=== PATIENT | male | born 1970 | race Caucasian/White ===

== ENCOUNTER 2018-03-28 20:13 | Emergency (ER) | payer BC ==
[2018-03-28 20:30] VITALS: BP 136/96
[2018-03-28] MEDS ORDERED: Lidocaine 1% MPF* 2 ML VIAL INJ ONE (20:37)
[2018-03-28] MEDS ORDERED: Lidocaine 1% MPF* 2 ML VIAL ONE (20:38)
[2018-03-28] MEDS ORDERED: Sulfamethox/Trimethoprim DS 800/160* TAB PO ONE (21:03)
[2018-03-28] MEDS ORDERED: Ibuprofen TAB* 400 MG PO ONE (21:03)
--- NOTE | 2018-03-28 21:27 | UC ---
Smita Ferguson Elizabeth, scribed for Haresh Santana MD on 03/28/18 at 2059 . Skin Complaint HPI - HPI Summary HPI Summary: This patient is a 48 year old M presenting to [facility] with a chief complaint of a boil below his umbilicus since 5 days ago. The patient notes that the sore became more indurated, painful and began to drain today. The patient rates the pain 2/10 in severity. Symptoms aggravated by nothing. Symptoms alleviated by nothing. The patient was found to have increased BP in UC. - History of Current Complaint Chief Complaint: UCGeneralIllness Time Seen by Provider: 03/28/18 20:21 Stated Complaint: SORE ON STOMACH Hx Obtained From: Patient Onset/Duration: Gradual Onset, Lasting Days - 5 days, Still Present Timing: Constant Onset Severity: Mild Current Severity: Mild Pain Intensity: 2 Pain Scale Used: 0-10 Numeric Location: Discrete, Other - below umbilicus Character: Redness Aggravating Factor(s): Nothing Alleviating Factor(s): Nothing - Allergy/Home Medications Allergies/Adverse Reactions: Allergies Allergy/AdvReac Type Severity Reaction Status Date / Time No Known Allergies Allergy Verified 03/28/18 20:30 Home Medications: Home Medications Atorvastatin* [Lipitor 20 MG*] 20 mg PO DAILY 03/28/18 [History Confirmed ] Review of Systems Constitutional: Negative - NEGATIVE FEVER Skin: Other - abscess below umbilicus ENT: Negative - NEGATIVE EPISTAXIS Respiratory: Negative - NEGATIVE COUG All Other Systems Reviewed And Are Negative: Yes PMH/Surg Hx/FS Hx/Imm Hx Endocrine History: Dyslipidemia Other Respiratory History: NEGATIVE COPD - Surgical History Surgical History: None - Family History Known Family History: Positive: None, Other - patient denies relevant FHx - Social History Alcohol Use: Occasionally Substance Use Type: None Smoking Status (MU): Never Smoked Tobacco Physical Exam - Summary Physical Exam Summary: VITAL SIGNS: Reviewed. GENERAL: Patient is a well-developed and nourished MALE who is lying comfortable in the stretcher. Patient is not in any acute respiratory distress. HEAD AND FACE: Normocephalic EYES: PERRLA, EOMI x 2. EARS: Hearing grossly intact. MOUTH: Oropharynx within normal limits. NECK: Supple, trachea is midline, no adenopathy, no JVD, no carotid bruit. CHEST: Symmetric, no tenderness at palpation LUNGS: Clear to auscultation bilaterally. No wheezing or crackles. CVS: Regular rate and rhythm, S1 and S2 present, no murmurs or gallops appreciated. ABDOMEN: Soft, non-tender. Bowel sounds are normal. No abdominal abnormal pulsations. Abscess under umbilicus with surrounding erythema EXTREMITIES: Full ROM in all major joints, no edema, no cyanosis or clubbing. NEURO: Alert and oriented x 3. No acute neurological deficits. Speech is normal and follows commands. SKIN: Dry and warm Triage Information Reviewed: Yes Vital Signs: Initial Vital Signs Temp 98.2 F 03/28/18 20:24 Pulse 77 03/28/18 20:24 Resp 18 03/28/18 20:24 BP 136/96 03/28/18 20:24 Pulse Ox 100 03/28/18 20:24 Vital Signs Reviewed: Yes Course/Dx - Course Course Of Treatment: Procedure - Incision and Drainage. Patient positioned appropriately, 2 cc lidocaine with/without epinephrine was used as a local anesthetic. #11 blade scalpel used for single incision. Additional local anesthetic injected into surrounding viable tissue prior to blunt dissection of loculated adhesions. Copious drainage of pus was expressed (culture obtained). Wound packed with iodoform gauze. Procedure tolerated without complications. Wound dressed with sterile 4x4 gauze and paper tape. The patient is also having cellulitis the patient was given Bactrim and ibuprofen for the pain. Patient will follow-up with primary care physician or return to the urgent care for reassessment next 2-3 days. The patient was also advised to go to the ER or return to the urgent care if the symptoms worsen. He understands and agrees. - Differential Diagnoses - Skin Complaint Differential Diagnoses: Abscess, Cellulitis - Diagnoses Provider Diagnoses: Abscess and cellulitis is status post I&D, HTN Discharge - Sign-Out/Discharge Documenting (check all that apply): Discharge/Admit/Transfer - Discharge Plan Condition: Stable Disposition: HOME Prescriptions: Ibuprofen TAB* [Motrin TAB* 800 MG] 800 mg PO Q8H PRN #20 tab PRN Reason: Pain Sulfamethox/Trimethoprim DS* [Bactrim DS 800/160 TAB*] 1 tab PO BID #20 tab Patient Education Materials: Cellulitis (ED), Abscess (ED) Referrals: [facility] [place] [facility] [Outside] No Primary Care Phys,NOPCP [Primary Care Provider] - Additional Instructions: Take medications as instructed Increase your fluid intake Return to the UC if symptoms worsen The documentation as recorded by the Smita dennis Elizabeth accurately reflects the service I personally performed and the decisions made by me, Haresh Santana MD.
--- NOTE | 2018-03-29 16:06 | UC ---
- Progress Note Progress Note: Lab called with POSITIVE MRSA result. Pt is on Bactrim. No change. Discharge - Sign-Out/Discharge Documenting (check all that apply): Post-Discharge Follow Up - Discharge Plan Condition: Stable Disposition: HOME Prescriptions: Ibuprofen TAB* [Motrin TAB* 800 MG] 800 mg PO Q8H PRN #20 tab PRN Reason: Pain Sulfamethox/Trimethoprim DS* [Bactrim DS 800/160 TAB*] 1 tab PO BID #20 tab Patient Education Materials: Cellulitis (ED), Abscess (ED) [place] [facility] [place] [place]] No Primary Care Phys,NOPCP [Primary Care Provider] - Additional Instructions: Take medications as instructed Increase your fluid intake Return to the UC if symptoms worsen - Billing Disposition and Condition Condition: STABLE Disposition: HOME
== END 2018-03-28 21:10 | disposition home or self-care (01) ==
LOC: UCEAST 20:13
DX: L02.216 Cutaneous abscess of umbilicus (principal); L03.316 Cellulitis of umbilicus; B95.62 Methicillin resistant Staphylococcus aureus infection as the cause of diseases classified elsewhere; E78.5 Hyperlipidemia, unspecified
CPT/HCPCS: 10060; 87070; 87077; 87186; 87205; 87640; 87641; 99202; A9270-GY; G0463

== ENCOUNTER 2018-03-30 18:36 | Emergency (ER) | payer BC ==
[2018-03-30 18:56] VITALS: BP 122/83
--- NOTE | 2018-03-30 19:17 | ED ---
Skin Complaint - HPI Summary HPI Summary: 48-year-old man returns to urgent care today 2 days post incision and drainage of an abdominal wall abscess. He was placed on Bactrim. The wound is improving in his opinion. He has not had any fever or increasing redness. There is no drainage. Culture return positive for MRSA, no changed antibiotics were made yesterday based on this culture and him being on Bactrim. - History of Current Complaint Chief Complaint: UCWounds Time Seen by Provider: 03/30/18 19:11 Stated Complaint: SORE ON STOMACH RECHECK Hx Obtained From: Patient Pain Intensity: 2 - Allergy/Home Medications Allergies/Adverse Reactions: Allergies Allergy/AdvReac Type Severity Reaction Status Date / Time No Known Allergies Allergy Verified 03/28/18 20:30 PMH/Surg Hx/FS Hx/Imm Hx Previously Healthy: Yes Infectious Disease History: No Infectious Disease History: Denies: Traveled Outside the [place] in Last 30 Days - Family History Known Family History: Positive: None, Other - patient denies relevant FHx - Social History Alcohol Use: Occasionally Substance Use Type: Reports: None Smoking Status (MU): Never Smoked Tobacco Review of Systems Negative: Fever, Chills Positive: Other - no wound drainage. Negative: Rash, Bruising All Other Systems Reviewed And Are Negative: Yes Physical Exam Triage Information Reviewed: Yes Vital Signs On Initial Exam: Initial Vitals Temp Pulse Resp BP Pulse Ox 97.6 F 60 16 122/83 99 03/30/18 18:51 03/30/18 18:51 03/30/18 18:51 03/30/18 18:51 03/30/18 18:51 Vital Signs Reviewed: Yes Appearance: Positive: Well-Appearing, No Pain Distress Skin: Positive: Warm, Dry, Other - Infraumbilical incised area with iodoform packing in place. The iodoform was removed. No drainage. Minimal surrounding erythema. Respiratory/Lung Sounds: Positive: Clear to Auscultation Cardiovascular: Positive: RRR Musculoskeletal: Positive: Strength/ROM Intact Neurological: Positive: Normal Procedures - Procedure Summary Procedure Summary: Wound care: I removed the packing from the abdominal wall abscess incised area. I cleaned the area with a swab and alcohol. I redressed it with 2 x 2 gauze covered by a 4 x 4. This was secured with tape. He tolerated this well without complication. Diagnostics - Vital Signs Vital Signs Temp Pulse Resp BP Pulse Ox 03/30/18 18:51 97.6 F 60 16 122/83 99 - Laboratory Lab Statement: Any lab studies that have been ordered have been reviewed, and results considered in the medical decision making process. Course/Dx - Course Course Of Treatment: Positive MRSA on Bactrim. Wound is well appearing at present. Packing discontinued. - Diagnoses Provider Diagnoses: MRSA (methicillin resistant staph aureus) culture positive, Abdominal wall abscess Discharge - Sign-Out/Discharge Documenting (check all that apply): Discharge/Admit/Transfer - Discharge Plan Condition: Good Disposition: HOME Patient Education Materials: MRSA (Methicillin-Resistant Staphylococcus Aureus ) (ED) Referrals: No Primary Care Phys,NOPCP [Primary Care Provider] - [facility] [place] [facility] [Outside] Additional Instructions: Return as needed or if wound is draining, redness is enlarging, fevers, worse or other concerns. Clean the area with soap and water twice a day as discussed. Continue antibiotics until out. - Billing Disposition and Condition Condition: GOOD Disposition: HOME
== END 2018-03-30 19:33 | disposition home or self-care (01) ==
LOC: UCEAST 18:36
DX: L02.211 Cutaneous abscess of abdominal wall (principal); B95.62 Methicillin resistant Staphylococcus aureus infection as the cause of diseases classified elsewhere
CPT/HCPCS: 99211; G0463

== ENCOUNTER 2019-02-24 14:01 | Emergency (ER) | payer BC, OTHER ==
[2019-02-24 14:29] VITALS: BP 142/88
--- NOTE | 2019-02-24 14:38 | UC ---
Laceration HPI - HPI Summary HPI Summary: 48-year-old male presents with complaints of laceration to his forehead. States that approximately 1:30 this afternoon he accidentally struck his head on the corner of a dumpster at work. States bleeding was controlled with direct pressure prior to arrival. Some of his coworkers attempted to close the wound using superglue. Complains of a mild headache. Denies loss of consciousness, dizziness, lightheadedness, visual disturbances, photophobia, weakness, numbness, or tingling. Tetanus status is unknown. - History Of Current Complaint Chief Complaint: UCHeadInjury Stated Complaint: HEAD LAC Time Seen by Provider: 02/24/19 14:19 Hx Obtained From: Patient Pain Intensity: 3 - Allergies/Home Medications Allergies/Adverse Reactions: Allergies Allergy/AdvReac Type Severity Reaction Status Date / Time No Known Allergies Allergy Verified 02/24/19 14:28 Home Medications: Home Medications Tamsulosin CAP* [Flomax CAP*] 0.4 mg PO BEDTIME 02/24/19 [History Confirmed ] PMH/Surg Hx/FS Hx/Imm Hx Previously Healthy: Yes - Denies significant PMH - Surgical History Surgical History: None - Family History Known Family History: Positive: Non-Contributory - Social History Occupation: Employed Full-time Lives: With Family Alcohol Use: Occasionally Substance Use Type: None Smoking Status (MU): Never Smoked Tobacco Review of Systems All Other Systems Reviewed And Are Negative: Yes Constitutional: Positive: Negative Skin: Positive: Other - See HPI Eyes: Negative: Blurred Vision, Diplopia, Photophobia Respiratory: Positive: Negative Cardiovascular: Positive: Negative Gastrointestinal: Positive: Negative Genitourinary: Positive: Negative Musculoskeletal: Positive: Negative Neurological: Positive: Headache. Negative: Weakness, Paresthesia, Numbness, Other - See HPI Is Patient Immunocompromised?: No Physical Exam - Summary Physical Exam Summary: GENERAL APPEARANCE: Well developed, well nourished, alert and cooperative, and appears to be in no acute distress. HEAD: 2 cm superficial laceration to mid forehead with bleeding controlled. The wound is presently closed with superglue. EYES: Conjunctiva clear. No drainage. PERRL, EOM intact. Vision is grossly intact. NECK: Neck supple, non-tender. CARDIAC: Normal S1 and S2. No S3, S4 or murmurs. Rhythm is regular. There is no peripheral edema, cyanosis or pallor. Extremities are warm and well perfused. Capillary refill is less than 2 seconds. Peripheral pulses intact. LUNGS: Clear to auscultation without rales, rhonchi, wheezing or diminished breath sounds. ABDOMEN: Positive bowel sounds. Soft, nondistended, nontender. No guarding or rebound. No masses or hepatosplenomegally. MUSKULOSKELETAL: ROM intact to all extremities. No joint erythema or tenderness. Normal muscular development. Normal gait. NEUROLOGICAL: CN II-XII intact. Strength and sensation symmetric and intact throughout. Negative Romberg. SKIN: Skin normal color, texture and turgor. Triage Information Reviewed: Yes Vital Signs: Initial Vital Signs Temp 98.3 F 02/24/19 14:21 Pulse 92 02/24/19 14:21 Resp 18 02/24/19 14:21 BP 142/88 02/24/19 14:21 Pulse Ox 97 02/24/19 14:21 Vital Signs Reviewed: Yes Laceration Repair - Laceration Repair 1 Description: Linear Laceration Size After Repair: Length (cm) - 2 cm superficial Cleansing Completed Via Routine Prep: Yes Closure Material: Skin Adhesive, SteriStrips Laceration Course/Dx - Course/Dx Course Of Treatment: 48-year-old male presents with complaints of laceration to his forehead. States that approximately 1:30 this afternoon he accidentally struck his head on the corner of a dumpster at work. States bleeding was controlled with direct pressure prior to arrival. Some of his coworkers attempted to close the wound using superglue. Complains of a mild headache. Denies loss of consciousness, dizziness, lightheadedness, visual disturbances, photophobia, weakness, numbness, or tingling. Tetanus status is unknown. Afebrile. Hypertensive otherwise vital signs stable. Exam was unremarkable except for what appeared to be a superficial laceration to his mid forehead. Since the patient attempted to close the wound himself using superglue I applied some bacitracin ointment to the area to dissolve the glue then thoroughly cleansed the wound using soap and water. After wound cleansing laceration was examined and found to be very superficial with no evidence of foreign body. The wound was then closed using two 1/8 inch Steri-Strips and a skin adhesive. Tetanus was updated. Wound care, anticipatory guidance, and warning symptoms were reviewed with the patient. Verbalizes understanding and agrees with plan of care. - Differential Dx - Laceration/Wound Differental Diagnoses: Laceration, Other - Closed head injury - Diagnosis Provider Diagnosis: Closed head injury, Laceration of forehead without complication, Elevated blood pressure reading Discharge - Sign-Out/Discharge Documenting (check all that apply): Patient Departure All imaging exams completed and their final reports reviewed: No Studies - Discharge Plan Condition: Stable Disposition: HOME Patient Education Materials: Head Injury (ED), Facial Laceration (ED) Referrals: No Primary Care Phys,NOPCP [Primary Care Provider] - Additional Instructions: Your laceration as repaired with a combination of skin adhesive and Steri- Strips. The adhesive will slowly wear off over the next several days. Keep the adhesive dry for the next 24 hours. After 24 hours you may shower and wash your hair as ususal. Do not apply any lotions or ointments to the adhesive as this may dissolve the adhesive and cause the wound to reopen. The Steri-Strips will slowly peel up from the ends over the next few days. You may trim the ends as needed but do not pull off or you may reopen the wound. Take acetaminophen (Tylenol) or ibuprofen (Advil, Motrin) according to directions as needed for pain. Your tetanus was updated today. Be sure to notify your primary care provider so they can update their records. Your blood pressure was also slightly elevated in the clinic today. It is recommended that you follow up with your primary care provider to have this rechecked within the next 4 weeks. Watch for signs of infection including fever greater than 100.5 F, severe pain not managed with with pain medicine, redness that spreads, swelling of the finger, pus draining from the wound, or any worsening of symptoms. Seek immediate medical attention if any of these occur. Seek immediate medical attention in the emergency room if you have a severe headache despite taking acetaminophen or ibuprofen, have visual disturbances, dizziness, you become faint or pass out, develop confusion, one pupil is larger than the other, persistent or projectile vomiting, or any worsening of symptoms. - Billing Disposition and Condition Condition: STABLE Disposition: Home
[2019-02-24] MEDS ORDERED: Tetan/Diph/Pertus SYR(Tdap)* 0.5 ML SYR(BOOSTRIX) use SYR IM ONE (14:44)
== END 2019-02-24 15:35 | disposition home or self-care (01) ==
LOC: UCEAST 14:01
DX: S09.90XA Unspecified injury of head, initial encounter (principal); S01.81XA Laceration without foreign body of other part of head, initial encounter; W22.09XA Striking against other stationary object, initial encounter; Y92.9 Unspecified place or not applicable; Y99.0 Civilian activity done for income or pay; Z23 Encounter for immunization; R03.0 Elevated blood-pressure reading, without diagnosis of hypertension
CPT/HCPCS: 12011; 90715; 99211; G0463